=== PATIENT | female | born 1950 | race Hispanic/Latino ===

== ENCOUNTER 2016-09-13 10:34 | Outpatient (CLI) | payer MEDICARE ==
--- NOTE | 2016-09-13 14:06 | Mammography Report ---
BILATERAL DIGITAL SCREENING MAMMOGRAM with CAD: 09/13/16 10:34:00 CLINICAL: Routine screening. COMPARISON:03/26/14 FINDINGS: The breasts are heterogeneously dense, which may obscure small masses. No mass, architectural distortion or suspicious calcifications. IMPRESSION: No mammographic evidence of malignancy. BI-RADS CATEGORY: 1 - - Negative RECOMMENDATION: Routine mammographic screening in one year. COMMENT: Patient follow-up letters are generated by our [employer] application.
== END 2016-09-13 10:35 | disposition home or self-care (01) ==
LOC: SPVWC 10:34
PROVIDERS: ATTEND Internal Medicine
DX: Z12.31 Encounter for screening mammogram for malignant neoplasm of breast (principal)
CPT/HCPCS: 77067; G0202

== ENCOUNTER 2017-08-18 08:39 | Outpatient (CLI) | payer MEDICARE ==
--- NOTE | 2017-08-18 12:29 | Cat Scan Report ---
CT abdomen and pelvis without contrast: Flank pain. Transverse images were obtained from the lower chest to the ischium with coronal and sagittal 2-D reformatted images. The visualized lungs are clear. The gallbladder contains a 16mm calculus. No inflammatory changes are noted. The abdominal structures are otherwise unremarkable. The adrenal glands and kidneys are normal. The abdominal aorta is normal in size and contour but contains diffuse mural calcification. The retroperitoneal structures are otherwise marked wall. There is no adenopathy noted. The unopacified bowel and mesentery appears grossly normal. There is a small fat-containing umbilical hernia. Images of the pelvis appear unremarkable but are partially degraded by streak artifact from her right hip replacement. The bones appear generally demineralized. There is a grade 1 anterior and right lateral L3 subluxation and virtual loss of the L4-5 interspace. There is significant narrowing of the L5-S1 interspace. Severe apophyseal degenerative changes are noted at the lower 2 interspaces. Impression: 1. Large gallstone. No inflammatory changes noted. 2. Severe degenerative lumbar spine changes as described.
== END 2017-08-18 08:40 | disposition home or self-care (01) ==
LOC: SPVIMAG 08:39
PROVIDERS: ATTEND Internal Medicine
DX: K80.20 Calculus of gallbladder without cholecystitis without obstruction (principal); K42.9 Umbilical hernia without obstruction or gangrene; M47.896 Other spondylosis, lumbar region; S33.130A Subluxation of L3/L4 lumbar vertebra, initial encounter; Z96.641 Presence of right artificial hip joint; X58.XXXA Exposure to other specified factors, initial encounter; Y93.89 Activity, other specified; Y92.89 Other specified places as the place of occurrence of the external cause; Y99.8 Other external cause status
CPT/HCPCS: 74176

== ENCOUNTER 2017-11-07 09:55 | Outpatient (CLI) | payer MEDICARE ==
--- NOTE | 2017-11-07 15:06 | Mammography Report ---
BILATERAL DIGITAL SCREENING MAMMOGRAM with CAD: 11/07/17 09:55:00 CLINICAL: Routine screening. COMPARISON:09/13/16 FINDINGS: The breasts are heterogeneously dense, which may obscure small masses. No mass, architectural distortion or suspicious calcifications. IMPRESSION: No mammographic evidence of malignancy. BI-RADS CATEGORY: 1 - - Negative RECOMMENDATION: Routine mammographic screening in one year. COMMENT: Patient follow-up letters are generated by our [employer] application.
== END 2017-11-07 09:56 | disposition home or self-care (01) ==
LOC: SPVWC 09:55
PROVIDERS: ATTEND Internal Medicine
DX: Z12.31 Encounter for screening mammogram for malignant neoplasm of breast (principal)
CPT/HCPCS: 77067

== ENCOUNTER 2017-12-05 11:03 | Day surgery (SDC) | payer MEDICARE ==
[2017-12-05] MEDS ORDERED: NACL BACTERIOSTATIC INFILTRATI ONE (12:13)
[2017-12-05] MEDS ORDERED: MARCAINE 0.25% INFILTRATI ONE ×3 (12:30→13:58)
[2017-12-05] MEDS ORDERED: VANCOMYCIN/NS 1 GM/250 ML 1 GM/250 ML BAG IV NR (13:00)
[2017-12-05] MEDS ORDERED: NACL 0.9% 1000 ML 1,000 ML IV SCH (13:00)
[2017-12-05] MEDS ORDERED: PROVENTIL IH ONE (13:04)
[2017-12-05 13:07] LABS: BUN/Creatinine Ratio 27; Blood Urea Nitrogen 16 mg/dL (7-17); Calcium 9.7 mg/dL (8.4-10.2); Hemolysis Index 118
[2017-12-05] MEDS ORDERED: PROVENTIL IH NR (13:15)
[2017-12-05] MEDS ORDERED: DIPRIVAN 10 MG/ML IV ONE (13:26)
[2017-12-05] MEDS ORDERED: SUBLIMAZE ONE (13:40)
--- NOTE | 2017-12-05 14:10 | Short Stay Summary ---
Short Stay Documentation Date of service: 12/05/17 Narrative H&P: see h&P - Allergies and Medications Current Medications: Allergies codeine Allergy (Verified 12/02/17 15:51) Rash Sulfa (Sulfonamide Antibiotics) Allergy (Verified 12/02/17 15:51) Itching Penicillins Adverse Reaction (Verified 12/02/17 15:51) state bc of codiene reaction not to chance it Home Medications Medication Instructions Recorded Confirmed Last Taken Type Leflunomide [Arava] 20 mg PO QDAY 12/02/17 12/02/17 12/04/17 History Lisinopril/Hydrochlorothiazide 1 each PO DAILY 12/02/17 12/02/17 12/04/17 History [Zestoretic 10-12.5 mg Tablet] Methotrexate(Dose Weekly Only) 2.5 mg PO QWEEK 12/02/17 12/05/17 11/30/17 History Tiotropium Crooks [Spiriva] 1 inh INHALATION DAILY 12/02/17 12/02/17 12/04/17 History Verapamil HCl [Verapamil Sr] 240 mg PO DAILY 12/02/17 12/02/17 12/04/17 History predniSONE [Deltasone] 5 mg PO DAILY 12/02/17 12/02/17 12/04/17 History Active Medications Albuterol (Proventil) 2.5 mg IH PREOP NR Stop: 12/05/17 23:59 Last Admin: 12/05/17 13:04 Dose: 2.5 mg Sodium Chloride (Nacl 0.9% 1000 Ml) 1,000 mls @ 75 mls/hr IV DIRECT ELIZABETH Last Admin: 12/05/17 12:49 Dose: 75 mls/hr Vancomycin HCl (Vancomycin/Ns 1 Gm/250 Ml) 1 gm in 250 mls @ 166.667 mls/hr IV PREOP NR; Protocol Stop: 12/05/17 14:29 Last Admin: 12/05/17 13:05 Dose: 166.667 mls/hr - Brief post op/procedure progress note Date of procedure: 12/05/17 Pre-op diagnosis: gallstones Post-op diagnosis: same Procedure: lap parul Anesthesia: GETA Findings: gallstones Surgeon: AYLA MESA Estimated blood loss: none Pathology: list Specimen disposition: to lab Condition: stable (gb) - Disposition Condition at discharge: Stable Disposition: DC-01 TO HOME OR SELFCARE Short Stay Discharge Plan Activity: advance as tolerated Weight Bearing Status: Weight Bear as Tolerated Diet: regular Wound: keep clean and dry Follow up with: AYLA MESA MD [Staff Physician] - 7 Days
[2017-12-05] MEDS ORDERED: BLOXIVERZ ONE (14:23)
[2017-12-05] MEDS ORDERED: ZOFRAN ONE (14:23)
[2017-12-05] MEDS ORDERED: ROBINUL ONE (14:23)
[2017-12-05] MEDS ORDERED: XYLOCAINE MPF 2% ONE (14:23)
[2017-12-05] MEDS ORDERED: ZEMURON IV ONE (14:30)
--- NOTE | 2017-12-05 14:31 | Operative Report ---
PREOPERATIVE DIAGNOSIS: Symptomatic gallstones. POSTOPERATIVE DIAGNOSIS: Symptomatic gallstones. PROCEDURE: Laparoscopic cholecystectomy. SURGEON: Derian Polk MD EDITOR AT LARGE: None. ANESTHESIA: General anesthesia. ESTIMATED BLOOD LOSS: Minimal. COMPLICATIONS: None. DRAINS: No drains. SPECIMENS: Gallbladder and stones. The patient tolerated the procedure well. Findings were chronic cholecystitis, cholelithiasis. INDICATIONS: A 67-year-old female with symptomatic gallstones here for a laparoscopic cholecystectomy. DESCRIPTION OF PROCEDURE: The patient was taken to the OR and placed on the operating room. Once general anesthesia was obtained, her anterior abdominal was prepped and draped in sterile fashion. Supraumbilical incision made approximately 0.5 cm length of the incision. A Veress needle was placed in the peritoneal cavity. CO2 was used to insufflate the peritoneal cavity and a 5 mm trocar was placed in the incision. Under direct visualization, two right upper quadrant 5 mm ports were placed and epigastric 10 mm port was placed. The gallbladder was grasped right shoulder and neck of the gallbladder sweats Laterally, there were some omental adhesions to the lateralize the gallbladder, which were taken down with the help of electrocautery. The cystic duct was isolated surrounding structures as well as the cystic artery. Once the triangle was identified, the cystic artery and cystic duct were both clipped and then transected. The gallbladder was removed from the gallbladder fossa with electrocautery. There was some thickening in the wall of the gallbladder consistent with chronic cholecystitis and there were some gallstones in the lumen of the gallbladder. The gallbladder was removed from the peritoneal cavity with help of an EndoCatch bag, after removed from the gallbladder fossa. After removal of the gallbladder, and after adequate hemostasis, all ports were removed. CO2 evacuated and all skin incisions closed in subcuticular fashion. Dermabond was placed on the incision. The patient tolerated the procedure well. JOB# [id number] ANTWON/SAVANNAH
[2017-12-05] MEDS ORDERED: DILAUDID IV PRN (14:39)
[2017-12-05] MEDS ORDERED: NORCO 5/325 PO PRN (14:39)
[2017-12-05] MEDS ORDERED: ATROVENT IH SCH (17:34)
[2017-12-05] MEDS ORDERED: PROVENTIL IH SCH (17:35)
[2017-12-05 19:31] VITALS: BP 107/58
== END 2017-12-05 18:29 | disposition home or self-care (01) ==
LOC: OR 11:03
PROVIDERS: ATTEND Surgery
DX: K80.10 Calculus of gallbladder with chronic cholecystitis without obstruction (principal); Z88.2 Allergy status to sulfonamides; Z88.5 Allergy status to narcotic agent; Z88.0 Allergy status to penicillin
CPT/HCPCS: 36415; 47562; 80048; 88304; 93005; 93010; J1170; J2405; J2704; J2710; J3010; J3370; J7030